=== PATIENT | male | born 1985 | race Caucasian/White ===

== ENCOUNTER → 2017-11-16 | Outpatient (CLI) | payer OTHER ==
[2017-11-16 16:39] LABS: EOS # 0.1 (0.04-0.40); EOS % 0.8 % (0.0-4.0); HEMATOCRIT 41.6 % (42.0-52.0); HEMOGLOBIN 13.6 g/dL (13.5-18.0); LYMPH# 1.8 (1.50-4.00); MEAN CELL VOLUME 89 fl (78-100); MEAN CORPUSCULAR HEMOGLOBIN 29 pg (27-31); MEAN CORPUSCULAR HGB CONC 33 g/dL (33-37); MEAN PLATELET VOLUME 10.2 fl (7.4-10.4); MONO # 0.4 (0.20-0.80); NEU # 3.7 (1.40-6.50); PLATELET COUNT 188 K/mm3 (130-400); RED BLOOD COUNT 4.67 M/mm3 (4.20-5.60); RED CELL DISTRIBUTION WIDTH 13.4 % (11.5-14.5)
[2017-11-16 16:52] LABS: BUN/CREATININE RATIO 15.2 (6.0-26.0); CALCIUM 8.6 mg/dL (8.4-10.2); POTASSIUM 3.8 mmol/L (3.6-5.0)
== END ==
LOC: LAB 16:26
PROVIDERS: Family Medicine
DX: D64.9 Anemia, unspecified (principal)

== ENCOUNTER → 2020-12-20 | Outpatient (REF) | LOC: LAB 10:00 | DX: Z79.899 Other long term (current) drug therapy (principal) ==

== ENCOUNTER 2021-10-03 08:05 | Emergency (ER) | payer OTHER ==
[~2021-10-03] VITALS: Ht 177.8 cm; Wt 81.8 kg
[2021-10-03 10:56] LABS: BASO # 0.01 K/mm3 (0.02-0.10); EOS # 0.01 K/mm3 (0.04-0.40); EOS % 0.1 % (0.0-4.0); HEMATOCRIT 42.3 % (42.0-52.0); HEMOGLOBIN 14.2 g/dL (13.5-18.0); LYMPH# 0.85 K/mm3 (1.50-4.00); MEAN CELL VOLUME 88 fl (78-100); MEAN CORPUSCULAR HEMOGLOBIN 29 pg (27-31); MEAN CORPUSCULAR HGB CONC 34 g/dL (33-37); MEAN PLATELET VOLUME 11.3 fl (7.4-10.4); MONO # 0.52 K/mm3 (0.20-0.80); NEU # 5.59 K/mm3 (1.40-6.50); PLATELET COUNT 152 K/mm3 (130-400); RED BLOOD COUNT 4.83 M/mm3 (4.20-5.60); RED CELL DISTRIBUTION WIDTH 12.4 % (11.5-14.5)
[2021-10-03 10:57] LABS: ALBUMIN 4.5 g/dL (3.5-5.0); POTASSIUM 4.2 mmol/L (3.5-5.1)
[2021-10-03 10:58] LABS: CALCIUM 9.5 mg/dL (8.3-10.5)
[2021-10-03 10:59] LABS: TOTAL PROTEIN 7.6 g/dL (6.4-8.3)
[2021-10-03 11:01] LABS: TOTAL BILIRUBIN 0.7 mg/dL (0.2-1.2)
[2021-10-03] MEDS ORDERED: PHENERGAN 25 TA25 MG PO (11:18)
[2021-10-03 11:27] VITALS: BP 124/73
== END 2021-10-03 11:30 | disposition home or self-care (01) ==
LOC: ED 08:05
PROVIDERS: Nurse Practitioner
DX: G43.909 Migraine, unspecified, not intractable, without status migrainosus (principal); Z20.822 Contact with and (suspected) exposure to COVID-19
CPT/HCPCS: J1885; J2550; J3010; J7030